=== PATIENT | male | born 1980 | race Caucasian/White ===

== ENCOUNTER 2018-01-11 14:43 | Inpatient (IN) | payer SELFPAY ==
[~2018-01-11] VITALS: Ht 182.9 cm; Wt 104.3 kg
[2018-01-11 14:43] VITALS: BP_SYST 152
[2018-01-11] MEDS ORDERED: KETOROLAC TROMETHAMINE 30 MG VIAL IVP ONE (15:30)
[2018-01-11] MEDS ORDERED: VANCOMYCIN HCL 1,000 MG in NS 250 ML IV ONE (15:45)
[2018-01-11 15:55] LABS: BASOPHILS % (AUTO) 0.4 % (0.0-2.0); EOSINOPHILS % (AUTO) 0.4 % (0.0-4.0); HEMATOCRIT 41.4 % (36-54); LYMPHOCYTES # (AUTO) 1.3 K/uL (1.0-5.5); MEAN CORPUSCULAR HEMOGLOBIN 30 pg (27-31); MEAN CORPUSCULAR HGB CONC 34 % (32-36); MEAN CORPUSCULAR VOLUME 88 fL (79.0-98.0); MONOCYTES # (AUTO) 1.1 K/uL (0.0-1.0); MONOCYTES % (AUTO) 9.7 % (1.7-9.3); NEUTROPHILS % (AUTO) 78.5 % (40.0-70.0); PLATELET COUNT (AUTO) 274 K/uL (130-430); RED BLOOD CELL COUNT(AUTO) 4.71 MIL/uL (4.2-6.2); RED CELL DISTRIBUTION WIDTH 14.1 % (9.0-15.0); WHITE BLOOD COUNT (AUTO) 11.4 K/uL (4.8-10.8)
[2018-01-11] MEDS ORDERED: VANCOMYCIN HCL 1000 MG/VIAL IV ONE (15:59)
[2018-01-11 16:16] LABS: CALCIUM 9.3 mg/dL (8.4-11.0); CREATININE 1.32 mg/dL (0.55-1.30); POTASSIUM 3.5 mmol/L (3.5-5.1)
[2018-01-11 16:20] LABS: ALBUMIN 3.2 g/dL (3.4-4.8); TOTAL BILIRUBIN 0.4 mg/dL (0.0-1.0)
[2018-01-11] MEDS ORDERED: PIPERACILLIN/TAZO 3.375 GM in NS 50 ML IV ONE (16:30)
[2018-01-11] MEDS: NACL 0.9% 1,000 ML IV SCH ×2 (16:52→23:19)
[2018-01-11] MEDS ORDERED: POTASSIUM CHLORIDE 20 MEQ TAB.PRT.SR PO PRN (17:00)
[2018-01-11] MEDS ORDERED: SIMETHICONE 80 MG TAB.CHEW PO PRN (17:00)
[2018-01-11] MEDS ORDERED: ACETAMINOPHEN 325 MG TABLET PO PRN (17:00)
[2018-01-11] MEDS ORDERED: HYDROcodone/ACETAMIN 10-325 MG TAB PO PRN (17:00)
[2018-01-11] MEDS: cefTRIAXone 1 GM IVPB PREMIX 50 ML IV SCH (17:00)
[2018-01-11] MEDS ORDERED: hydrALAZINE HCL 20 MG/ML VIAL IVP PRN (17:00)
[2018-01-11] MEDS ORDERED: BISACODYL 10 MG/SUPPOSITORY RC PRN (17:00)
[2018-01-11] MEDS ORDERED: ZOLPIDEM TARTRATE 5 MG TABLET PO PRN (17:00)
[2018-01-11] MEDS ORDERED: MORPHINE 2 MG/ML INJ. SYRINGE IVP PRN (17:00)
[2018-01-11] MEDS ORDERED: ONDANSETRON HCL 4 MG/2 ML VIAL IVP PRN (17:00)
[2018-01-11] MEDS ORDERED: PIPERACILLIN/TAZOBACTAM 3.375 GM/VIAL (ZOSYN) IV ONE (17:25)
[2018-01-11] MEDS: PIPERACILLIN/TAZO 3.375 GM in NS 50 ML IV SCH (18:00)
[2018-01-11] MEDS ORDERED: LEVE10006 PO (18:03)
[2018-01-11] MEDS ORDERED: GABA800T PO (18:03)
[2018-01-11] MEDS ORDERED: QUET50TA13 PO (18:03)
[2018-01-11 18:19] VITALS: BP_SYST 147
[2018-01-11 19:34] LABS: FREE T4 (FREE THYROXINE) 0.9 ng/dL (0.6-1.6); PHOSPHORUS 2.2 mg/dL (2.7-4.5); THYROID STIMULATING HORMONE 0.52 uIu/mL (0.34-4.82)
[2018-01-11 20:41] VITALS: BP_SYST 150
[2018-01-11] MEDS: levETIRAcetam 500 MG TABLET PO SCH (21:01)
[2018-01-11] MEDS: DOCUSATE SODIUM 100 MG CAPSULE PO SCH (21:01)
[2018-01-11] MEDS: GABAPENTIN 400 MG CAPSULE PO SCH (21:01)
[2018-01-11] MEDS: QUEtiapine FUMARATE 25 MG TABLET PO SCH (21:57)
[2018-01-12 00:28] VITALS: BP_SYST 133
[2018-01-12] MEDS: PIPERACILLIN/TAZO 3.375 GM in NS 50 ML IV SCH ×5 (00:58→23:16)
[2018-01-12] MEDS: NACL 0.9% 1,000 ML IV SCH ×3 (06:33→19:32)
[2018-01-12 07:00] LABS: CALCIUM 8.6 mg/dL (8.4-11.0); CREATININE 1.1 mg/dL (0.55-1.30); PHOSPHORUS 3.2 mg/dL (2.7-4.5); POTASSIUM 3.1 mmol/L (3.5-5.1)
[2018-01-12 08:01] LABS: BASOPHILS % (AUTO) 0.7 % (0.0-2.0); EOSINOPHILS # (AUTO) 0.2 K/uL (0.0-0.4); EOSINOPHILS % (AUTO) 3.5 % (0.0-4.0); HEMATOCRIT 35.8 % (36-54); HEMOGLOBIN 11.8 g/dL (14.0-18.0); LYMPHOCYTES # (AUTO) 1.9 K/uL (1.0-5.5); LYMPHOCYTES % (AUTO) 28.1 % (20.5-51.5); MEAN CORPUSCULAR HEMOGLOBIN 30 pg (27-31); MEAN CORPUSCULAR HGB CONC 33 % (32-36); MEAN CORPUSCULAR VOLUME 90 fL (79.0-98.0); MONOCYTES # (AUTO) 0.9 K/uL (0.0-1.0); MONOCYTES % (AUTO) 13.5 % (1.7-9.3); NEUTROPHILS # (AUTO) 3.7 K/uL (1.8-7.7); NEUTROPHILS % (AUTO) 54.2 % (40.0-70.0); PLATELET COUNT (AUTO) 229 K/uL (130-430); RED BLOOD CELL COUNT(AUTO) 3.99 MIL/uL (4.2-6.2); RED CELL DISTRIBUTION WIDTH 14.4 % (9.0-15.0); WHITE BLOOD COUNT (AUTO) 6.7 K/uL (4.8-10.8)
[2018-01-12 08:09] VITALS: BP_SYST 129
[2018-01-12] MEDS: GABAPENTIN 400 MG CAPSULE PO SCH ×3 (08:28→21:02)
[2018-01-12] MEDS: levETIRAcetam 500 MG TABLET PO SCH ×2 (08:28→21:02)
[2018-01-12] MEDS: DOCUSATE SODIUM 100 MG CAPSULE PO SCH ×2 (08:28→21:02)
[2018-01-12] MEDS: LORazepam 2 MG/ML VIAL IVP PRN ×2 (11:25→17:27)
[2018-01-12 12:31] VITALS: BP_SYST 129; BP_SYST 159
[2018-01-12] MEDS: MORPHINE 4 MG/ML INJ. SYRINGE IVP PRN ×2 (14:21→18:23)
[2018-01-12] MEDS: cefTRIAXone 1 GM IVPB PREMIX 50 ML IV SCH (16:42)
[2018-01-12 16:48] VITALS: BP_SYST 139
[2018-01-12 19:55] VITALS: BP_SYST 124
[2018-01-12] MEDS ORDERED: NICOTINE 14 MG/24 HR PATCH.TD24 TD SCH (20:00)
[2018-01-12] MEDS: QUEtiapine FUMARATE 25 MG TABLET PO SCH (21:03)
[2018-01-12] MEDS ORDERED: NICOTINE 21 MG/24 HR PATCH.TD24 TD PRN (21:15)
[2018-01-12] MEDS ORDERED: ZOLPIDEM TARTRATE 5 MG TABLET PO SCH (22:00)
[2018-01-12] MEDS ORDERED: fentaNYL CITRATE/PF 100 MCG/2 ML AMP IVP PRN (23:00)
[2018-01-13 00:31] VITALS: BP_SYST 133
[2018-01-13] MEDS: NACL 0.9% 1,000 ML IV SCH ×2 (01:39→09:03)
[2018-01-13] MEDS: PIPERACILLIN/TAZO 3.375 GM in NS 50 ML IV SCH ×2 (05:27→11:41)
[2018-01-13] MEDS: MORPHINE 4 MG/ML INJ. SYRINGE IVP PRN ×2 (05:39→11:41)
[2018-01-13 06:54] LABS: BASOPHILS % (AUTO) 0.7 % (0.0-2.0); EOSINOPHILS # (AUTO) 0.2 K/uL (0.0-0.4); EOSINOPHILS % (AUTO) 4.7 % (0.0-4.0); HEMATOCRIT 36.3 % (36-54); HEMOGLOBIN 12.2 g/dL (14.0-18.0); LYMPHOCYTES # (AUTO) 1.3 K/uL (1.0-5.5); MEAN CORPUSCULAR HEMOGLOBIN 30 pg (27-31); MEAN CORPUSCULAR HGB CONC 34 % (32-36); MEAN CORPUSCULAR VOLUME 89 fL (79.0-98.0); MONOCYTES # (AUTO) 0.6 K/uL (0.0-1.0); MONOCYTES % (AUTO) 11.6 % (1.7-9.3); PLATELET COUNT (AUTO) 256 K/uL (130-430); RED BLOOD CELL COUNT(AUTO) 4.09 MIL/uL (4.2-6.2); WHITE BLOOD COUNT (AUTO) 5.1 K/uL (4.8-10.8)
[2018-01-13 07:01] LABS: CALCIUM 8.6 mg/dL (8.4-11.0); CREATININE 1.08 mg/dL (0.55-1.30); PHOSPHORUS 2.6 mg/dL (2.7-4.5); POTASSIUM 3.8 mmol/L (3.5-5.1)
[2018-01-13 08:20] VITALS: BP_SYST 142
[2018-01-13] MEDS: DOCUSATE SODIUM 100 MG CAPSULE PO SCH (08:58)
[2018-01-13] MEDS: GABAPENTIN 400 MG CAPSULE PO SCH (08:59)
[2018-01-13] MEDS ORDERED: NICOTINE 14 MG/24 HR PATCH.TD24 TD SCH (09:00)
[2018-01-13] MEDS: levETIRAcetam 500 MG TABLET PO SCH (09:03)
[2018-01-13] MEDS: LORazepam 2 MG/ML VIAL IVP PRN (09:03)
[2018-01-13] MEDS ORDERED: CEPH-568 PO (10:49)
[2018-01-13] MEDS ORDERED: TRAM50TA92 PO (10:49)
[2018-01-13 12:26] VITALS: BP_SYST 134
[2018-01-13 12:42] VITALS: BP_SYST 152
[2018-01-14 02:15] LABS: T4 (THYROXINE) 5.7 ug/dL (4.5-12.0)
[2018-01-14 06:05] LABS: HEMOGLOBIN A1C 5.5 % (4.8-5.6)
== END 2018-01-13 13:14 | disposition home or self-care (01) | DRG 871 ==
LOC: SED 14:43 → SMU 16:52
PROVIDERS: ADMIT Family Medicine; ATTEND Family Medicine
DX: A41.9 Sepsis, unspecified organism (principal); N17.0 Acute kidney failure with tubular necrosis; L03.116 Cellulitis of left lower limb; E83.39 Other disorders of phosphorus metabolism; D63.8 Anemia in other chronic diseases classified elsewhere; G62.9 Polyneuropathy, unspecified; M19.90 Unspecified osteoarthritis, unspecified site; E87.6 Hypokalemia; E83.41 Hypermagnesemia
CPT/HCPCS: 36415; 73564; 80048; 80053; 80061; 82150-TC; 83036; 83605; 83690-TC; 83735-TC; 83880; 84100-TC; 84436; 84439; 84443-TC; 84479; 85025; 87040-TC; 93971; 96365; 96366; 96367; 96375; 99285; J0696; J1885; J2060; J2270; J2543; J3370; J7030; J7050

== ENCOUNTER 2018-01-14 16:04 | Emergency (ER) | payer SELFPAY ==
[~2018-01-14] VITALS: Ht 182.9 cm; Wt 104.3 kg
[~2018-01-14 16:04] MED LIST: CEPH-568 PO; GABA800T PO; LEVE10006 PO; QUET50TA13 PO; TRAM50TA92 PO
[2018-01-14 16:11] VITALS: BP_SYST 160
[2018-01-14 16:56] LABS: BASOPHILS # (AUTO) 0.1 K/uL (0.0-0.2); EOSINOPHILS # (AUTO) 0.1 K/uL (0.0-0.4); EOSINOPHILS % (AUTO) 2.4 % (0.0-4.0); HEMATOCRIT 40.7 % (36-54); HEMOGLOBIN 13.5 g/dL (14.0-18.0); LYMPHOCYTES % (AUTO) 19.3 % (20.5-51.5); MEAN CORPUSCULAR HEMOGLOBIN 29 pg (27-31); MEAN CORPUSCULAR HGB CONC 33 % (32-36); MEAN CORPUSCULAR VOLUME 88 fL (79.0-98.0); MONOCYTES # (AUTO) 0.5 K/uL (0.0-1.0); NEUTROPHILS # (AUTO) 3.5 K/uL (1.8-7.7); NEUTROPHILS % (AUTO) 68.3 % (40.0-70.0); PLATELET COUNT (AUTO) 367 K/uL (130-430); RED BLOOD CELL COUNT(AUTO) 4.63 MIL/uL (4.2-6.2); RED CELL DISTRIBUTION WIDTH 13.9 % (9.0-15.0); WHITE BLOOD COUNT (AUTO) 5.2 K/uL (4.8-10.8)
[2018-01-14 17:18] LABS: CALCIUM 9.7 mg/dL (8.4-11.0); CREATININE 0.9 mg/dL (0.55-1.30); POTASSIUM 4.6 mmol/L (3.5-5.1)
[2018-01-14 17:22] LABS: ALBUMIN 3.2 g/dL (3.4-4.8); TOTAL BILIRUBIN 0.3 mg/dL (0.0-1.0)
[2018-01-14 17:23] LABS: PROTHROMBIN TIME 9.8 SECS (9.5-12.5)
[2018-01-14 18:30] VITALS: BP_SYST 142
== END 2018-01-14 18:30 | disposition home or self-care (01) ==
LOC: SED 16:04
DX: L03.116 Cellulitis of left lower limb (principal); R03.0 Elevated blood-pressure reading, without diagnosis of hypertension; R74.0 Nonspecific elevation of levels of transaminase and lactic acid dehydrogenase [LDH]; F12.10 Cannabis abuse, uncomplicated; F11.10 Opioid abuse, uncomplicated
CPT/HCPCS: 36415; 80053; 85025; 85610-TC; 85730-TC; 93971; 99285